=== PATIENT | male | born 1985 | race American Indian/Alaskan Native ===

== ENCOUNTER 2019-04-12 21:59 | Observation (INO) | payer OTHER ==
[2019-04-12] MEDS ORDERED: levETIRAcetam 1000 MG/NS 0.75% 1,000 MG/100 ML BAG IV ONE (22:56)
--- NOTE | 2019-04-12 23:01 | Emergency Department Report ---
HPI - General Chief Complaint: Seizure Time Seen by Provider: 04/12/19 22:47 - HPI HPI: Room 23 The patient is a 33-year-old male presenting with a chief complaint seizure. Family states the patient was in his usual state of health when he was upstairs taking a shower. Family states they heard the patient fall so they went upstairs and made entry into the bathroom to find him having a generalized tonic-clonic seizure. Family states the seizure lasted until EMS arrived and administered Ativan from is estimated 20-30 minutes). Patient has been c ompliant with his Keppra. Family states the patient's last seizure before today occurred approximately 1 year ago. The patient is currently postictal and does not answer questions Location: [See above] Duration: [See above] Quality: [See above] Severity: [See above] Timing: [See above] Context: [See above] Modifying factors: [See above] Associated signs and symptoms: [see above] ED Past Medical Hx - Past Medical History Hx CVA: Yes (residual left-sided weakness) Hx Seizures: Yes Additional medical history: Multiple sclerosis - Surgical History Past Surgical History?: No - Family History Family history: no significant - Social History Smoking Status: Never Smoker Substance Use Type: None ED Review of Systems ROS: Stated complaint: SEIZURE Other details as noted in HPI Comment: Unobtainable due to pts medical conditions Physical Exam - Physical Exam Vital Signs: Vital Signs 04/12/19 22:47 Temperature 97.7 F Pulse Rate 95 H Respiratory 13 Rate Blood Pressure 111/66 [Right] O2 Sat by Pulse 97 Oximetry Physical Exam: GENERAL: The patient is well-developed well-nourished male lying on stretcher resting. Patient postictal attempt open eyes with tactile stimuli but does not answer questions. [] HEENT: Normocephalic. Atraumatic. NECK: Supple. Trachea midline CHEST/LUNGS: Clear to auscultation. There is no respiratory distress noted. HEART/CARDIOVASCULAR: Regular. There is no tachycardia. There is no gallop rub or murmur. ABDOMEN: Abdomen is soft, nontender. Patient has normal bowel sounds. There is no abdominal distention. SKIN: There is no rash. There is no edema. There is no diaphoresis. NEURO: The patient is postictal and does not answer questions or follow commands during Neurologic exam MUSCULOSKELETAL: There is no evidence of acute injury. ED Course Vital Signs 04/12/19 22:47 Temperature 97.7 F Pulse Rate 95 H Respiratory 13 Rate Blood Pressure 111/66 [Right] O2 Sat by Pulse 97 Oximetry - Reevaluation(s) Reevaluation #1: 04/13/19 04:32 Patient does not awaken to answer questions at this time. Has not returned to mental baseline. We'll admit the patient to the hospital for further observation for prolonged postictal state ED Medical Decision Making - Lab Data Result diagrams: 04/12/19 23:28 04/12/19 23:28 Laboratory Tests 04/12/19 04/12/19 04/12/19 23:28 23:28 23:34 WBC 11.8 H RBC 4.58 Hgb 14.7 Hct 42.0 MCV 92 MCH 32 MCHC 35 H RDW 11.5 L Plt Count 255 Lymph % (Auto) 7.3 L [place] % (Auto) 5.3 Eos % (Auto) 3.4 Baso % (Auto) 0.4 Lymph # 0.9 L Teller # 0.6 Eos # 0.4 Baso # 0.0 Seg Neutrophils % 83.6 H Seg Neutrophils # 9.9 H Sodium 139 Potassium 3.9 Chloride 101.4 Carbon Dioxide 24 Anion Gap 18 BUN 13 Creatinine 1.0 Estimated GFR > 60 BUN/Creatinine Ratio 13 Glucose 119 H Calcium 9.6 Magnesium 2.00 Total Creatine Kinase 143 - Radiology Data Radiology results: report reviewed (CT head, CT cervical spine), image reviewed (CT head, CT cervical spine) [facility] [address] [place] [address] Cat Scan Report Signed Patient: DEBORAH FELICIANO MR#: [id number] : 1985 Acct:[id number] Age/Sex: 33 / M ADM Date: 04/12/19 Loc: ED Attending Dr: Ordering Physician: ELOY PYLE MD Date of Service: 04/13/19 Procedure(s): CT head/brain wo con Accession Number(s): [id number] cc: ELOY PYLE MD Examination: CT of the head without contrast Clinical information: Altered mental status. Seizure. Fall. Comparison: None Technical: Multiple axial CT images of the head were obtained without intravenous contrast. Sagittal and coronal reformats were obtained. All CTs at this facility utilize dose reduction techniques including automated exposure control, iterative reconstruction and weight based dosing when appropriate to reduce patient radiation dose to as low as reasonable achievable. Findings: There is no CT evidence of acute intracranial hemorrhage or large territorial infarct. The ventricular system appears mildly prominent, likely secondary to mild generalized parenchymal volume loss. No extra-axial collections are identified. Evaluation of the calvarium demonstrates no evidence of acute bony abnormality. There is a small mucocele or mucous retention cyst within the left maxillary sinus. Impression: 1. No CT evidence of acute intracranial process. 2. Mild generalized parenchymal volume loss. Signer Name: Gabriella Armijo MD Signed: 04/13/2019 1:53 AM Workstation Name: [id number] Transcribed By: EB Dictated By: Gabriella Armijo MD Electronically Authenticated By: Gabriella Armijo MD Signed Date/Time: 04/13/19152 DD/ 9 TD/TT: [place] [address] Cat Scan Report Signed Patient: DEBORAH FELICIANO MR#: [id number] : 1985 Acct:[id number] Age/Sex: 33 / M ADM Date: 04/12/19 Loc: ED Attending Dr: Ordering Physician: ELOY PYLE MD Date of Service: 04/13/19 Procedure(s): CT cervical spine wo con Accession Number(s): [id number] cc: ELOY PYLE MD Examination: CT of the cervical spine without contrast Clinical information: History of seizure. Fall. Comparison: CT of the head, 04/13/2019 Technical: Multip le axial CT images of the cervical spine were obtained without intravenous contrast. Sagittal and coronal reformats were obtained. All CTs at this facility utilize dose reduction techniques including automated exposure control, iterative reconstruction and weight based dosing when appropriate to reduce patient radiation dose to as low as reasonable achievable. Findings: There is normal alignment of the cervical vertebral bodies. Vertebral body height and intervertebral disc spaces appear well maintained. No significant bony degenerative changes are noted. The bilateral lung apices are clear. There may be a small amount of secretions within the trachea. Impression: 1. No CT evidence of acute bony abnormality of the cervical vertebral bodies. Signer Name: Gabriella Armijo MD Signed: 04/13/2019 2:20 AM Workstation Name: [id number] Transcribed By: EB Dictated By: Gabriella Armijo MD Electronically Authenticated By: Gabriella Armijo MD Signed Date/Time: 04/13/19219 DD/ 5 TD/TT: - Differential Diagnosis seizure Critical care attestation.: If time is entered above; I have spent that time in minutes in the direct care of this critically ill patient, excluding procedure time. ED Disposition Clinical Impression: Seizure, Post-ictal state Disposition: DC-09 OP ADMIT IP TO THIS HOSP Is pt being admited?: Yes Does the pt Need Aspirin: No Condition: Fair Time of Disposition: 04:32 (hospitalist paged (Dr Faulkner))
[2019-04-13 00:47] LABS: Basophils % (Auto) 0.4 % (0.0-1.8); Eosinophils # (Auto) 0.4 K/mm3 (0.0-0.4); Eosinophils % (Auto) 3.4 % (0.0-4.3); Hemoglobin 14.7 gm/dl (11.8-15.2); Lymphocytes # (Auto) 0.9 K/mm3 (1.2-5.4); Lymphocytes % (Auto) 7.3 % (13.4-35.0); Mean Corpuscular HGB Conc 35 % (32-34); Mean Corpuscular Volume 92 fl (84-94); Monocytes # (Auto) 0.6 K/mm3 (0.0-0.8); Monocytes % (Auto) 5.3 % (0.0-7.3); Platelet Count 255 K/mm3 (140-440); Red Blood Count 4.58 M/mm3 (3.65-5.03); Red Cell Distribution Width 11.5 % (13.2-15.2)
[2019-04-13 01:06] LABS: BUN/Creatinine Ratio 13; Blood Urea Nitrogen 13 mg/dL (9-20); Calcium 9.6 mg/dL (8.4-10.2); Hemolysis Index 6
--- NOTE | 2019-04-13 01:57 | Cat Scan Report ---
Examination: CT of the head without contrast Clinical information: Altered mental status. Seizure. Fall. Comparison: None Technical: Multiple axial CT images of the head were obtained without intravenous contrast. Sagittal and coronal reformats were obtained. All CTs at this facility utilize dose reduction techniques inc luding automated exposure control, iterative reconstruction and weight based dosing when appropriate to reduce patient radiation dose to as low as reasonable achievable. Findings: There is no CT evidence of acute intracranial hemorrhage or large territorial infarct. The ventricular system appears mildly prominent, likely secondary to mild generalized parenchymal volume loss. No extra-axial collections are identified. Evaluation of the calvarium demonstrates no evidence of acute bony abnormality. There is a small muco bhavesh or mucous retention cyst within the left maxillary sinus. Impression: 1. No CT evidence of acute intracranial process. 2. Mild generalized parenchymal volume loss. Signer Name: Gabriella Armijo MD Signed: 04/13/2019 1:53 AM Workstation Name: [id number]
--- NOTE | 2019-04-13 02:25 | Cat Scan Report ---
Examination: CT of the cervical spine without contrast Clinical information: History of seizure. Fall. Comparison: CT of the head, 04/13/2019 Technical: Multiple axial CT images of the cervical spine were obtained without intravenous contrast. Sagittal and coronal reformats were obtained. All CTs at this facility utilize dose reduction techn iques including automated exposure control, iterative reconstruction and weight based dosing when karl ropriate to reduce patient radiation dose to as low as reasonable achievable. Findings: There is normal alignment of the cervical vertebral bodies. Vertebral body height and intervertebral disc spaces appear well maintained. No significant bony degenerative changes are noted. The bilateral lung apices are clear. There may be a small amount of secretions within the trachea. Impression: 1. No CT evidence of acute bony abnormality of the cervical vertebral bodies. Signer Name: Gabriella Armijo MD Signed: 04/13/2019 2:20 AM Workstation Name: [id number]
[2019-04-13] MEDS ORDERED: ONDANSETRON 4 MG/2 ML INJ ONE (03:40)
[2019-04-13] MEDS ORDERED: ONDANSETRON 4 MG/2 ML INJ IV ONE (03:42)
--- NOTE | 2019-04-13 07:38 | History and Physical Report ---
History of Present Illness Date of examination: 04/13/19 Date of admission: 04/13/19 Chief complaint: Seizure History of present illness: Patient is a 33-year-old male with past medical history of MS diagnosed at age 20 and since then also seizure normally receives care in [place] from where he recently moved to [place] about a month and a half ago according to history from the family. The patient is a poor historian unable to give much information except that he normally gets shots for his seizures every 6 months from his neurologist. He also reports taking Keppra but is unsure of the dose but states that he takes 2 tablets twice a day. Family upon arrival informs me that they are the ones that give the patient his medications but are not sure if he just shakes them and then spits them out but they believe that he actually does take the medication. Patient on arrival did not exhibit any nausea vomiting or diarrhea. The patient did have according to chart review tonic- clonic seizure and was postictal on arrival to the ED. It is documented that his last seizure was about a year ago though he does have increased tremors since. Past History Past Medical History: seizures, other (MS) Past Surgical History: No surgical history Social history: no significant social history, lives with family, full code Family history: no significant family history Medications and Allergies Allergies Allergy/AdvReac Type Severity Reaction Status Date / Time aspirin Allergy Unknown Verified 04/12/19 23:06 ibuprofen Allergy Unknown Verified 04/12/19 23:06 wheat Allergy Unknown Verified 04/12/19 23:07 Home Medications Medication Instructions Recorded Confirmed Last Taken Type levETIRAcetam [Keppra TAB] 2,000 mg PO BID 04/13/19 04/13/19 Unknown History Review of Systems ROS unobtainable: due to mental status Exam - Physical Exam Narrative exam: VITAL SIGNS: Reviewed. GENERAL: The patient appears normally developed, tremors Vital signs as documented. HEAD: No signs of head trauma. EYES: Pupils are equal. Extraocular motions intact. EARS: Hearing grossly intact. MOUTH: Oropharynx is normal. NECK: No adenopathy, no JVD. CHEST: Chest with clear breath sounds bilaterally. No wheezes, rales, or rhonchi. CARDIAC: Regular rate and rhythm. S1 and S2, without murmurs, gallops, or rubs. VASCULAR: No Edema. Peripheral pulses normal and equal in all extremities. ABDOMEN: Soft, non tender and non distended. No rebound or guarding, and no masses palpated. Bowel Sounds normal. MUSCULOSKELETAL: Good range of motion of all major joints. Extremities without clubbing, cyanosis or edema. NEUROLOGIC EXAM: Alert and oriented x 3 No focal sensory or strength deficits. Speech normal although some treamor. Follows commands. PSYCHIATRIC: Mood normal. SKIN: detail exam as documented in skin assessment - Constitutional Vitals: Temp Pulse Resp BP Pulse Ox 97.7 F 69 19 116/59 95 04/12/19 22:47 04/13/19 06:41 04/13/19 06:41 04/13/19 06:41 04/13/19 06:41 Results - Labs CBC & Chem 7: 04/12/19 23:28 04/12/19 23:28 Labs: Laboratory Last Values WBC 11.8 K/mm3 (4.5-11.0) H 04/12/19 23:28 RBC 4.58 M/mm3 (3.65-5.03) 04/12/19 23:28 Hgb 14.7 gm/dl (11.8-15.2) 04/12/19 23:28 Hct 42.0 % (35.5-45.6) 04/12/19 23:28 MCV 92 fl (84-94) 04/12/19 23:28 MCH 32 pg (28-32) 04/12/19 23:28 MCHC 35 % (32-34) H 04/12/19 23:28 RDW 11.5 % (13.2-15.2) L 04/12/19 23:28 Plt Count 255 K/mm3 (140-440) 04/12/19 23:28 Lymph % (Auto) 7.3 % (13.4-35.0) L 04/12/19 23:28 [place] % (Auto) 5.3 % (0.0-7.3) 04/12/19 23: Eos % (Auto) 3.4 % (0.0-4.3) 04/12/19 23:28 Baso % (Auto) 0.4 % (0.0-1.8) 04/12/19 23:28 Lymph # 0.9 K/mm3 (1.2-5.4) L 04/12/19 23:28 [place] # 0.6 K/mm3 (0.0-0.8) 04/12/19 23:28 Eos # 0.4 K/mm3 (0.0-0.4) 04/12/19 23:28 Baso # 0.0 K/mm3 (0.0-0.1) 04/12/19 23:28 Seg Neutrophils % 83.6 % (40.0-70.0) H 04/12/19 23:28 Seg Neutrophils # 9.9 K/mm3 (1.8-7.7) H 04/12/19 23:28 Sodium 139 mmol/L (137-145) 04/12/19 23:28 Potassium 3.9 mmol/L (3.6-5.0) 04/12/19 23:28 Chloride 101.4 mmol/L (98-107) 04/12/19 23:28 Carbon Dioxide 24 mmol/L (22-30) 04/12/19 23:28 Anion Gap 18 mmol/L 04/12/19 23:28 BUN 13 mg/dL (9-20) 04/12/19 23:28 Creatinine 1.0 mg/dL (0.8-1.5) 04/12/19 23:28 Estimated GFR > 60 ml/min 04/12/19 23:28 BUN/Creatinine Ratio 13 % 04/12/19 23:28 Glucose 119 mg/dL (75-100) H 04/12/19 23:28 Calcium 9.6 mg/dL (8.4-10.2) 04/12/19 23:28 Magnesium 2.00 mg/dL (1.7-2.3) 04/12/19 23:28 Total Creatine Kinase 143 units/L (55-170) 04/12/19 23:34 Assessment and Plan Assessment and plan: Patient is a 33-year-old male with past medical history of MS diagnosed at age 20 and since then also seizure normally receives care in [place] from where he recently moved to [place] about a month and a half ago according to history from the family. The patient is a poor historian unable to give much information except that he normally gets shots for his seizures every 6 months from his neurologist. He also reports taking Keppra but is unsure of the dose but states that he takes 2 tablets twice a day. Family upon arrival informs me that they are the ones that give the patient his medications but are not sure if he just shakes them and then spits them out but they believe that he actually does take the medication. Patient on arrival did not exhibit any nausea vomiting or diarrhea. The patient did have according to chart review tonic- clonic seizure and was postictal on arrival to the ED. It is documented that his last seizure was about a year ago though he does have increased tremors since. Seizure MS Leukocytosis Plan Admit to [facility] Seizure Precautions Restart home dose Keppra, attempt to get correct dose Discussed with family Await ordered UDS Outpatient EEG per Neurology Advance Directives: Yes Plan of care discussed with patient/family: Yes
[2019-04-13] MEDS ORDERED: ONDANSETRON 4 MG/2 ML INJ IV PRN (10:11)
--- NOTE | 2019-04-13 10:46 | Consultation ---
History of Present Illness Consult date: 04/13/19 Requesting physician: LAURYN AYALA Reason for Consult: sz Chief complaint: I had a seizure History of present illness: 33-year-old male very poor historian hypophonic not giving up a lot of history states she's had seizures for 5 years and a tremor Admits to noncompliance with Keppra stating that he thinks he took it about a month ago but is not sure arrives with breakthrough seizures Based on chart review he had a tonic-clonic seizure yesterday post ictal arrival here his last seizure was approximately one year ago patient has a warning "a feeling that have a seizure" he says his tremors increase In the past she's never been intubated for seizures he says his longest seizure was maybe 10 minutes Since admission to the ER no further seizures patient denies any focal brain def icits Currently no change of vision speech or swallow no double vision vertigo or headache Patient denies any lateralizing deficits numbness tingling loss of coordination or balance Patient states he is always has a tremor at baseline In his chart states that he's had a seizure history and probably epilepsy and possibly multiple sclerosis along with the CVA that is based on the ED notes CT head which was reviewed by myself shows no acute findings but there is mention of generalized parenchymal volume loss CT cervical shows no fracture Patient was loaded with Keppra in the ED White count is elevated Review of systems all other systems negative No hallucinations no SI or HI No bowel and bladder dysfunction no fever no recent illness patient denies any sleep deprivation History negative for neurologic disease Social history negative for occult tobacco or drugs Medications and Allergies Allergies Allergy/AdvReac Type Severity Reaction Status Date / Time aspirin Allergy Unknown Verified 04/12/19 23:06 ibuprofen Allergy Unknown Verified 04/12/19 23:06 wheat Allergy Unknown Verified 04/12/19 23:07 Home Medications Medication Instructions Recorded Confirmed Last Taken Type No Known Home Medications [No 04/13/19 04/13/19 Unknown History Reported Home Medications] Active Meds: Active Medications Acetaminophen (Tylenol) 650 mg PO Q4H PRN PRN Reason: Pain MILD(1-3)/Fever >100.5/MENDES Levetiracetam 1,000 mg/ (Dextrose) 110 mls @ 400 mls/hr IV Q12HR KATHY Ondansetron HCl (Zofran) 4 mg IV Q8H PRN PRN Reason: Nausea And Vomiting Sodium Chloride (Sodium Chloride Flush Syringe 10 Ml) 10 ml IV BID KATHY Sodium Chloride (Sodium Chloride Flush Syringe 10 Ml) 10 ml IV PRN PRN PRN Reason: LINE FLUSH Physical Examination - Vital Signs Vital Signs: Vital Signs Temp Pulse Resp BP Pulse Ox 97.7 F 95 H 13 111/66 97 04/12/19 22:47 04/12/19 22:47 04/12/19 22:47 04/12/19 22:47 04/12/19 22:47 Awake and alert and oriented 2 hypophonic slow speech patient has some memory issues and can't really recall his medications last seizure a warning prior to his seizure his longest seizure Slow speech and possibly mildly confused and mildly disoriented No dysarthria no agnosia no apraxia no aphasia Neck is supple skin intact pulses are good to all limbs No asymmetrical edema Abdomen soft Cranial nerves are all intact 2 through 12 thoroughly tested EOMI PERRLA double vision visual alcaraz are full Head titubation's There is also some action tremor to the arms and legs 5 out of 5 strength throughout and normal sensory throughout and normal tone and symmetrical throughout No cerebellar signs Tongue is midline no discharge nose or ears Results - Laboratory Findings CBC and BMP: 04/12/19 23:28 04/12/19 23:28 Abnormal Lab Findings: Abnormal Labs 04/12/19 04/12/19 23:28 23:28 WBC 11.8 H MCHC 35 H RDW 11.5 L Lymph % (Auto) 7.3 L Lymph # 0.9 L Seg Neutrophils % 83.6 H Seg Neutrophils # 9.9 H Glucose 119 H Assessment and Plan Seizure breakthrough patient is a poor historian I'm going off chart review and there is no family in the room apparently has a history of stroke MS and seizure disorder Patient does get a warning so he probably has focal and generalized seizure disorder Stable No further seizures loaded with Keppra I would continue Keppra 500 twice a day Seizure precaution Workup elevated white counts thus far no fevers or suggestion of infection Patient is noncompliant with his Keppra Because I don't have any imaging on patient such as MRI brain to evaluate prior history of stroke MS I would get one MRI brain wall he is here unless the team finds an old MRI that was done within the past year and then they can cancel my order Aspirin for secondary stroke prevention Telemetry Check UDS Outpatient EEG 80 minutes was spent on this case mainly going through the chart and this was the best way to find out information, as patient is a poor historian
[2019-04-13] MEDS ORDERED: LORazepam 2 MG/ML VIAL IV PRN (13:14)
[2019-04-13] MEDS: ACETAMINOPHEN 325 MG TAB PO PRN (13:53)
[2019-04-13] MEDS ORDERED: levETIRAcetam 1,000 MG in DEXTROSE 5% IN WATER 100 ML IV SCH (22:00)
[2019-04-13] MEDS ORDERED: LEVETIRACETAM 2000 MG PO SCH (22:00)
[2019-04-13] MEDS: levETIRAcetam 500 MG TAB PO SCH (22:51)
[2019-04-14 05:44] LABS: Basophils # (Auto) 0.1 K/mm3 (0.0-0.1); Eosinophils # (Auto) 0.8 K/mm3 (0.0-0.4); Eosinophils % (Auto) 13.8 % (0.0-4.3); Hematocrit 41.9 % (35.5-45.6); Hemoglobin 14.5 gm/dl (11.8-15.2); Lymphocytes # (Auto) 1.9 K/mm3 (1.2-5.4); Lymphocytes % (Auto) 33.7 % (13.4-35.0); Mean Corpuscular HGB Conc 35 % (32-34); Mean Corpuscular Volume 91 fl (84-94); Monocytes # (Auto) 0.6 K/mm3 (0.0-0.8); Platelet Count 232 K/mm3 (140-440); Red Cell Distribution Width 11.7 % (13.2-15.2)
[2019-04-14 05:56] LABS: BUN/Creatinine Ratio 16; Blood Urea Nitrogen 14 mg/dL (9-20); Calcium 9.3 mg/dL (8.4-10.2); Hemolysis Index 15
[2019-04-14] MEDS: levETIRAcetam 500 MG TAB PO SCH (10:17)
[2019-04-14] MEDS: ACETAMINOPHEN 325 MG TAB PO PRN (11:31)
--- NOTE | 2019-04-14 11:56 | Discharge Summary ---
Providers - Providers Date of Admission: 04/13/19 05:00 Attending physician: MEGAN DUPONT MD 04/13/19 07:38 Consult to Physician [CONS] Routine Comment: Consulting Provider: FLOYD AMAYA Physician Instructions: Reason For Exam: SEIZURE Primary care physician: DATABASE ADMINISTRATOR Hospitalization Reason for admission: Seizure Condition: Stable Hospital course: Patient is a 33-year-old male with past medical history of MS diagnosed at age 20 and since then also seizure normally receives care in [place] from where he recently moved to [place] about a month and a half ago according to history from the family. The patient is a poor historian unable to give much information except that he normally gets shots for his seizures every 6 months from his neurologist. He also reports taking Keppra but is unsure of the dose but states that he takes 2 tablets twice a day. Family upon arrival informs me that they are the ones that give the patient his medications but are not sure if he just shakes them and then spits them out but they believe that he actually does take the medication. Patient on arrival did not exhibit any nausea vomiting or diarrhea. The patient did have according to chart review tonic- clonic seizure and was postictal on arrival to the ED. It is documented that his last seizure was about a year ago though he does have increased tremors since. * Patient underwent an MRI which did not show any acute pathology. * Patient seizure improved continued antiseizure medication on home dose. Advised family about need for follow-up. They recommended to be following up at the [facility] based on recommendation from patient's previous neurology. They had wanted to take the patient home yesterday but I convinced them to wait till today so that we can get better evaluation of the patient and ensure that there is no breakthrough seizures. I also advised the patient no driving according to [place] law and no operating any motorized vehicle. Until seen and cleared by primary care doctor or neurologist Seizure MS Leukocytosis Disposition: - TO HOME OR SELFCARE Time spent for discharge: 35 minutes Core Measure Documentation - Palliative Care Palliative Care/ Comfort Measures: Not Applicable - Core Measures Any of the following diagnoses?: none Exam - Physical Exam Narrative exam: VITAL SIGNS: Reviewed. GENERAL: The patient appears normally developed, tremors Vital signs as documented. HEAD: No signs of head trauma. EYES: Pupils are equal. Extraocular motions intact. EARS: Hearing grossly intact. MOUTH: Oropharynx is normal. NECK: No adenopathy, no JVD. CHEST: Chest with clear breath sounds bilaterally. No wheezes, rales, or rhonchi. CARDIAC: Regular rate and rhythm. S1 and S2, without murmurs, gallops, or rubs. VASCULAR: No Edema. Peripheral pulses normal and equal in all extremities. ABDOMEN: Soft, non tender and non distended. No rebound or guarding, and no masses palpated. Bowel Sounds normal. MUSCULOSKELETAL: Good range of motion of all major joints. Extremities without clubbing, cyanosis or edema. NEUROLOGIC EXAM: Alert and oriented x 3 No focal sensory or strength deficits. Speech normal although some treamor. Follows commands. PSYCHIATRIC: Mood normal. SKIN: detail exam as documented in skin assessment - Constitutional Vitals: Temp Pulse Resp BP Pulse Ox 98.2 F 64 18 115/76 97 04/14/19 05:00 04/14/19 05:00 04/14/19 05:00 04/14/19 05:00 04/14/19 05:00 Plan Activity: no driving until cleared by PCP, fall precautions Diet: low fat Special Instructions: record daily weights, record daily BP diary Additional Instructions: Mother plans for patient to follow at [facility]. Continue with plan Follow up with: PRIMARY CAREMD [Primary Care Provider] - 3-5 Days [facility] [Outside] - 7 Days Prescriptions: levETIRAcetam [Keppra TAB] 2,000 mg PO BID #60 tab
[2019-04-14 12:47] VITALS: BP 133/64
--- NOTE | 2019-04-14 13:20 | Magnetic Resonance Report ---
MRI BRAIN WITHOUT CONTRAST INDICATION / CLINICAL INFORMATION: arriving with seizure disorder history of MS CVA. TECHNIQUE: Multisequence, multiplanar images were obtained. COMPARISON: CT head without contrast dated 04/13/2019 FINDINGS: CEREBRAL and CEREBELLAR HEMISPHERES: Moderate diffuse volume loss is evident. Extensive T2 signal abn ormalities are identified throughout the white matter of both cerebral hemispheres. The overall patte rn is most consistent with chronic microvascular ischemic change. There are a few pericallosal lesion s bilaterally which could be related to multiple sclerosis. No evidence for mass, hemorrhage, extra- axial fluid collection or chronic infarct. No diffusion restriction to suggest acute infarct. VENTRICLES: Normal in size and configuration for age. VISUALIZED ORBITS: No significant abnormality. The optic nerves are symmetric and unremarkable. VISUALIZED PARANASAL SINUSES: No significant abnormality. ADDITIONAL FINDINGS: None. IMPRESSION: Volume loss. Extensive nonspecific chronic white matter changes as described. No acute intracranial process is appreciated. Signer Name: Sunny Pratt Jr, MD Signed: 04/14/2019 1:15 PM Workstation Name: [id number]
[2019-04-14 15:18] LABS: Amphetamine Screen,Urine PRESUMPTIVE NEGATIVE; Benzodiazepines Screen,Urine PRESUMPTIVE NEGATIVE; Cannabinoid Screen,Urine PRESUMPTIVE NEGATIVE; Cocaine Screen,Urine PRESUMPTIVE NEGATIVE; Methadone Screen,Urine PRESUMPTIVE NEGATIVE; Opiate Screen,Urine PRESUMPTIVE NEGATIVE
== END 2019-04-14 15:00 | disposition home or self-care (01) ==
LOC: ED 21:59 → 3A 04-13 05:00
PROVIDERS: ADMIT Internal Medicine Geriatric Medicine; ATTEND Internal Medicine
DX: R56.9 Unspecified convulsions (principal); G35 Multiple sclerosis; D72.829 Elevated white blood cell count, unspecified; I69.354 Hemiplegia and hemiparesis following cerebral infarction affecting left non-dominant side; Z71.6 Tobacco abuse counseling; Z79.899 Other long term (current) drug therapy; Z79.82 Long term (current) use of aspirin; Z88.6 Allergy status to analgesic agent; Z91.018 Allergy to other foods
CPT/HCPCS: 36415; 70450; 70551; 72125; 80048; 80177; 80307; 82550; 83735; 85025; 96374; 96375; 99284; 99406; G0378; J1953; J2405

== ENCOUNTER 2020-06-11 01:38 | Inpatient (IN) | payer MEDICARE ==
--- NOTE | 2020-06-11 02:29 | Emergency Department Report ---
ED Seizure HPI - General Chief Complaint: Seizure Stated Complaint: SEIZURE Time Seen by Provider: 06/11/20 02:02 Source: EMS Mode of arrival: Stretcher Limitations: Altered Mental Status - History of Present Illness Initial Comments: Chief complaint: Seizure HPI: This is a 34-year-old male with history of seizure disorder, multiple sclerosis since age 20, cognitive deficit who presents with 5 consecutive seizures today. Patient received 4 mg total of lorazepam per EMS. 2 mg were given IV. 2 mg given IM. Patient has not had seizure in 1 years time. At that time he had similar presentation. Patient has minimal verbal interaction at baseline. According to electronic record, patient was admitted to this hospital in April 2019 for status epilepticus. I spoke by mother for phone Eduin Pace phone #[phone] Patient has history of epilepsy MS depression paranoia. Followed by Kelin Matute neurologist epicenter. Mother observed 3 seizures today. Patient had 2 additional seizures in the presence of EMS. Patient takes Keppra 2000 mg twice daily 8 in the morning 8 PM. Patient also takes Seroquel 200 mg and Zoloft 100 mg. Patient is followed by psychiatrist at [facility]. No new changes. Mother is unclear why patient has had seizures especially this morning. MD Complaint: seizure -: This evening Witnessed:: Yes Trauma: No Seizure History: known seizure disorder Place: home Possible Precipitating Event: other (Unknown, patient is compliant with Keppra 2000 mg daily) Associated Symptoms: other (Unable to obtain) Treatments Prior to Arrival: benzodiazepines (4 mg via EMS) - Related Data Previous Rx's Medication Instructions Recorded Last Taken Type levETIRAcetam [Keppra TAB] 2,000 mg PO BID #60 tab 04/14/19 Unknown Rx Allergies Allergy/AdvReac Type Severity Reaction Status Date / Time aspirin Allergy Unknown Verified 04/12/19 23:06 ibuprofen Allergy Unknown Verified 04/12/19 23:06 wheat Allergy Unknown Verified 04/12/19 23:07 ED Review of Systems ROS: Stated complaint: SEIZURE Other details as noted in HPI Comment: Unobtainable due to pts medical conditions (Sedated, history of cognitive deficit) ED Past Medical Hx - Past Medical History Previous Medical History?: Yes Hx CVA: Yes (residual left-sided weakness) Hx Seizures: Yes Additional medical history: Multiple sclerosis - Social History Smoking Status: Never Smoker - Medications Home Medications: Home Medications Medication Instructions Recorded Confirmed Last Taken Type levETIRAcetam [Keppra TAB] 2,000 mg PO BID #60 tab 04/14/19 Unknown Rx ED Physical Exam - General Limitations: Altered Mental Status General appearance: in no apparent distress, lethargic, other (Intact gag, will moan to questions, will open eyes, appears drowsy) - Head Head exam: Present: atraumatic, normocephalic - Eye Eye exam: Present: normal appearance - ENT ENT exam: Present: mucous membranes dry - Neck Neck exam: Present: normal inspection, full ROM - Respiratory Respiratory exam: Present: normal lung sounds bilaterally. Absent: respiratory distress, wheezes, rales, rhonchi - Cardiovascular Cardiovascular Exam: Present: regular rate, normal rhythm, normal heart sounds. Absent: systolic murmur, diastolic murmur, rubs, gallop - GI/Abdominal GI/Abdominal exam: Present: soft, normal bowel sounds. Absent: distended, tenderness, guarding, rebound - Rectal Rectal exam: Present: deferred - Extremities Exam Extremities exam: Present: normal inspection - Psychiatric Psychiatric exam: Present: flat affect - Skin Skin exam: Present: warm, dry, intact, normal color. Absent: rash ED Course Vital Signs 06/11/20 01:52 Temperature 99.0 F Pulse Rate 109 H Respiratory 14 Rate Blood Pressure 118/68 O2 Sat by Pulse 94 Oximetry ED Medical Decision Making - Lab Data Result diagrams: 06/11/20 02:36 06/11/20 02:36 Laboratory Results - last 24 hr 06/11/20 06/11/20 02:36 02:36 WBC 11.2 H RBC 4.64 Hgb 15.1 Hct 43.2 MCV 93 MCH 33 H MCHC 35 H RDW 11.9 L Plt Count 257 Lymph % (Auto) 9.2 L [place] % (Auto) 5.6 Eos % (Auto) 3.6 Baso % (Auto) 0.6 Lymph # (Auto) 1.0 L [place] # (Auto) 0.6 Eos # (Auto) 0.4 Baso # (Auto) 0.1 Seg Neutrophils % 81.0 H Seg Neutrophils # 9.1 H Sodium 137 Potassium 3.7 Chloride 100.2 Carbon Dioxide 26 Anion Gap 15 BUN 12 Creatinine 1.0 Estimated GFR > 60 BUN/Creatinine Ratio 12 Glucose 149 H Calcium 9.2 Total Bilirubin 0.20 AST 27 ALT 34 Alkaline Phosphatase 93 Total Protein 7.3 Albumin 4.6 Albumin/Globulin Ratio 1.7 - Medical Decision Making Status epilepticus: Patient required 4 mg of lorazepam. Patient is still sedated. Will need admission for neurological checks and medical optimization. CBC chemistry within normal limits. Critical care attestation.: If time is entered above; I have spent that time in minutes in the direct care of this critically ill patient, excluding procedure time. ED Disposition Clinical Impression: Status epilepticus, Multiple sclerosis Disposition: OP ADMIT IP TO THIS HOSP Is pt being admited?: Yes Does the pt Need Aspirin: No Condition: Stable
[2020-06-11 03:18] LABS: Basophils # (Auto) 0.1 K/mm3 (0.0-0.1); Basophils % (Auto) 0.6 % (0.0-1.8); Eosinophils # (Auto) 0.4 K/mm3 (0.0-0.4); Eosinophils % (Auto) 3.6 % (0.0-4.3); Hematocrit 43.2 % (35.5-45.6); Hemoglobin 15.1 gm/dl (11.8-15.2); Lymphocytes % (Auto) 9.2 % (13.4-35.0); Mean Corpuscular HGB Conc 35 % (32-34); Mean Corpuscular Volume 93 fl (84-94); Monocytes # (Auto) 0.6 K/mm3 (0.0-0.8); Monocytes % (Auto) 5.6 % (0.0-7.3); Platelet Count 257 K/mm3 (140-440); Red Blood Count 4.64 M/mm3 (3.65-5.03); Red Cell Distribution Width 11.9 % (13.2-15.2)
[2020-06-11 03:35] LABS: Alanine Aminotransferase 34 units/L (7-56); Albumin 4.6 g/dL (3.9-5); BUN/Creatinine Ratio 12; Blood Urea Nitrogen 12 mg/dL (9-20); Calcium 9.2 mg/dL (8.4-10.2); Hemolysis Index 7
[2020-06-11] MEDS ORDERED: ONDANSETRON 4 MG/2 ML INJ ONE (04:30)
[2020-06-11] MEDS ORDERED: PANTOPRAZOLE 40 MG INJ IV ONE (04:33)
[2020-06-11] MEDS ORDERED: ONDANSETRON 4 MG/2 ML INJ IV ONE (04:33)
[2020-06-11] MEDS ORDERED: ACETAMINOPHEN 325 MG TAB PO PRN (04:42)
[2020-06-11] MEDS ORDERED: MAGNESIUM HYDROXIDE (MOM) ORAL LIQD UDC PO PRN (04:42)
[2020-06-11] MEDS ORDERED: MORPHINE 2 MG/1 ML INJ IV PRN (04:42)
[2020-06-11] MEDS ORDERED: ONDANSETRON 4 MG/2 ML INJ IV PRN (04:42)
--- NOTE | 2020-06-11 04:53 | History and Physical Report ---
History of Present Illness Date of examination: 06/11/20 Date of admission: 06/11/2020 Chief complaint: Seizures History of present illness: 34-year-old male with known history of multiple sclerosis, seizure disorder, depression and paranoia brought into the emergency room by EMS after having multiple seizures today. He has had about 5 seizures prior to reporting to the emergency room. Patient has also had about 4 mg of lorazepam prior to arrival. Most of the history was gotten from the ER staff as patient is nonverbal. Patient had a similar episode sometime in April 2019. He takes Keppra 2000 mg twice a day. Follows up with Dr. Matute who is his neurologist. Mother is the caregiver. Work-up in the emergency room today has been unremarkable. Patient is currently postictal. Past History Past Medical History: seizures, stroke (With left sided weakness), other (Multiple sclerosis,Depression,) Past Surgical History: No surgical history Social history: no significant social history Family history: no significant family history Medications and Allergies Allergies Allergy/AdvReac Type Severity Reaction Status Date / Time aspirin Allergy Unknown Verified 04/12/19 23:06 ibuprofen Allergy Unknown Verified 04/12/19 23:06 wheat Allergy Unknown Verified 04/12/19 23:07 Home Medications Medication Instructions Recorded Confirmed Last Taken Type levETIRAcetam [Keppra TAB] 2,000 mg PO BID #60 tab 04/14/19 Unknown Rx Active Meds: Active Medications Acetaminophen (Acetaminophen 325 Mg Tab) 650 mg PO Q4H PRN PRN Reason: Pain MILD(1-3)/Fever >100.5/MENDES Enoxaparin Sodium (Enoxaparin 40 Mg/0.4 Ml Inj) 40 mg SUB-Q QDAY@2200 KATHY; Protocol Sodium Chloride (Nacl 0.9% 1000 Ml) 1,000 mls @ 75 mls/hr IV DIRECT KATHY Magnesium Hydroxide (Magnesium Hydroxide (Mom) Oral Liqd Udc) 30 ml PO Q4H PRN PRN Reason: Constipation Morphine Sulfate (Morphine 2 Mg/1 Ml Inj) 2 mg IV Q4H PRN PRN Reason: Pain, Moderate (4-6) Ondansetron HCl (Ondansetron 4 Mg/2 Ml Inj) 4 mg IV Q8H PRN PRN Reason: Nausea And Vomiting Sodium Chloride (Sodium Chloride 0.9% 10 Ml Flush Syringe) 10 ml IV BID KATHY Sodium Chloride (Sodium Chloride 0.9% 10 Ml Flush Syringe) 10 ml IV PRN PRN PRN Reason: LINE FLUSH Review of Systems ROS unobtainable: due to mental status Exam - Constitutional Vitals: Temp Pulse Resp BP Pulse Ox 99.0 F 109 H 14 118/68 94 06/11/20 01:52 06/11/20 01:52 06/11/20 01:52 06/11/20 01:52 06/11/20 01:52 General appearance: Present: no acute distress, well-nourished - EENT Eyes: Present: PERRL, EOM intact. Absent: scleral icterus ENT: hearing intact, clear oral mucosa, dentition normal - Neck Neck: Present: supple, normal ROM - Respiratory Respiratory effort: normal Respiratory: bilateral: CTA - Cardiovascular Rhythm: regular Heart Sounds: Present: S1 & S2. Absent: gallop, systolic murmur, diastolic murmur, rub, click - Extremities Extremities: no ischemia, pulses intact, pulses symmetrical, No edema, normal temperature, normal color, Full ROM Peripheral Pulses: within normal limits - Abdominal General gastrointestinal: Present: soft, non-tender, non-distended, normal bowel sounds. Absent: mass - Integumentary Integumentary: Present: clear, warm, dry. Absent: rash - Musculoskeletal Musculoskeletal: strength equal bilaterally - Psychiatric Psychiatric: cooperative - Neurologic Neurologic: other (Alert,drowsy and non verbal) Results - Labs CBC & Chem 7: 06/11/20 02:36 06/11/20 02:36 Labs: Abnormal lab results 06/11/20 06/11/20 Range/Units 02:36 02:36 WBC 11.2 H (4.5-11.0) K/mm3 MCH 33 H (28-32) pg MCHC 35 H (32-34) % RDW 11.9 L (13.2-15.2) % Lymph % (Auto) 9.2 L (13.4-35.0) % Lymph # (Auto) 1.0 L (1.2-5.4) K/mm3 Seg Neutrophils % 81.0 H (40.0-70.0) % Seg Neutrophils # 9.1 H (1.8-7.7) K/mm3 Glucose 149 H (75-100) mg/dL Assessment and Plan - Patient Problems (1) Status epilepticus Current Visit: Yes Status: Acute Plan to address problem: Patient admitted and placed on Keppra. We will place on seizure precautions. Patient is currently postictal. Consult placed to neurologist for evaluation. (2) Multiple sclerosis Current Visit: Yes Status: Acute Plan to address problem: Patient was diagnosed since age 20. None We will continue routine home medications. (3) DVT prophylaxis Current Visit: Yes Status: Acute Plan to address problem: Place patient on subcutaneous lovenox. (4) Full code status Current Visit: Yes Status: Acute Plan to address problem: Patient is a full code.
[2020-06-11] MEDS ORDERED: LORazepam 2 MG/ML VIAL IV PRN (05:44)
[2020-06-11 05:47] LABS: Mucus,Urine FEW /HPF; WBC,Urine < 1.0 /HPF (0.0-6.0)
--- NOTE | 2020-06-11 05:51 | Cat Scan Report ---
CT head/brain wo con INDICATION: seizure vomiting. TECHNIQUE: All CT scans at this location are performed using the following dose modulation technique: Automated exposure control. CONTRAST: None. COMPARISON: 04/13/2019. FINDINGS: The ventricular system is appropriate in size and configuration without midline shift. Ther e is atrophy for age and white matter low density. Negative for mass, stroke or hemorrhage. The bones are unremarkable. Evaluation the paranasal sinuses demonstrate a left maxillary mucous rete ntion cyst. IMPRESSION: 1. Atrophy for age. 2. White matter disease. Findings are not significantly changed from the previous exam. Signer Name: Julian Castelan MD Signed: 06/11/2020 5:46 AM Workstation Name: [id number]
[2020-06-11 05:55] LABS: Bilirubin,Urine NEG (Negative); Blood,Urine NEG (Negative); Color,Urine Yellow (Yellow); Protein,Urine <15 mg/dL mg/dL (Negative); Urobilinogen,Urine < 2.0 mg/dL (<2.0)
--- NOTE | 2020-06-11 08:36 | Progress Note ---
Assessment and Plan Assessment and plan: 34-year-old male with known history of multiple sclerosis, seizure disorder, depression and paranoia brought into the emergency room by EMS after having multiple seizures Seizure disorder. S/p status epilepticus Multiple sclerosis DVT prophylaxis 06/11/2020. Neurology consultation pending. Follow-up EEG. Continue Keppra. Seizure precautions. CT head unremarkable. Consider MRI History Interval history: No new issues overnight. Hospitalist Physical - Constitutional Vitals: Temp Pulse Resp BP Pulse Ox 99.0 F 87 22 144/73 97 06/11/20 01:52 06/11/20 06:31 06/11/20 06:31 06/11/20 06:31 06/11/20 06:31 General appearance: Present: no acute distress, well-nourished - EENT Eyes: Present: PERRL, EOM intact ENT: hearing intact, clear oral mucosa, dentition normal - Neck Neck: Present: supple, normal ROM - Respiratory Respiratory effort: normal Respiratory: bilateral: CTA - Cardiovascular Rhythm: regular Heart Sounds: Present: S1 & S2. Absent: gallop, rub - Extremities Extremities: no ischemia, No edema, Full ROM - Abdominal General gastrointestinal: soft, non-tender, non-distended, normal bowel sounds - Integumentary Integumentary: Present: clear, warm, dry - Neurologic Neurologic: CNII-XII intact, moves all extremities Results - Labs CBC & Chem 7: 06/11/20 02:36 06/11/20 02:36 Labs: Laboratory Last Values WBC 11.2 K/mm3 (4.5-11.0) H 06/11/20 02:36 RBC 4.64 M/mm3 (3.65-5.03) 06/11/20 02:36 Hgb 15.1 gm/dl (11.8-15.2) 06/11/20 02:36 Hct 43.2 % (35.5-45.6) 06/11/20 02:36 MCV 93 fl (84-94) 06/11/20 02:36 MCH 33 pg (28-32) H 06/11/20 02:36 MCHC 35 % (32-34) H 06/11/20 02:36 RDW 11.9 % (13.2-15.2) L 06/11/20 02:36 Plt Count 257 K/mm3 (140-440) 06/11/20 02:36 Lymph % (Auto) 9.2 % (13.4-35.0) L 06/11/20 02:36 [place] % (Auto) 5.6 % (0.0-7.3) 06/11/20 02:36 Eos % (Auto) 3.6 % (0.0-4.3) 06/11/20 02:36 Baso % (Auto) 0.6 % (0.0-1.8) 06/11/20 02:36 Lymph # (Auto) 1.0 K/mm3 (1.2-5.4) L 06/11/20 02:36 [place] # (Auto) 0.6 K/mm3 (0.0-0.8) 06/11/20 02:36 Eos # (Auto) 0.4 K/mm3 (0.0-0.4) 06/11/20 02:36 Baso # (Auto) 0.1 K/mm3 (0.0-0.1) 06/11/20 02:36 Seg Neutrophils % 81.0 % (40.0-70.0) H 06/11/20 02:36 Seg Neutrophils # 9.1 K/mm3 (1.8-7.7) H 06/11/20 02:36 Sodium 137 mmol/L (137-145) 06/11/20 02:36 Potassium 3.7 mmol/L (3.6-5.0) 06/11/20 02:36 Chloride 100.2 mmol/L (98-107) 06/11/20 02:36 Carbon Dioxide 26 mmol/L (22-30) 06/11/20 02:36 Anion Gap 15 mmol/L 06/11/20 02:36 BUN 12 mg/dL (9-20) 06/11/20 02:36 Creatinine 1.0 mg/dL (0.8-1.3) 06/11/20 02:36 Estimated GFR > 60 ml/min 06/11/20 02:36 BUN/Creatinine Ratio 12 % 06/11/20 02:36 Glucose 149 mg/dL (75-100) H 06/11/20 02:36 Calcium 9.2 mg/dL (8.4-10.2) 06/11/20 02:36 Total Bilirubin 0.20 mg/dL (0.1-1.2) 06/11/20 02:36 AST 27 units/L (5-40) 06/11/20 02:36 ALT 34 units/L (7-56) 06/11/20 02:36 Alkaline Phosphatase 93 units/L (35-129) 06/11/20 02:36 Total Protein 7.3 g/dL (6.3-8.2) 06/11/20 02:36 Albumin 4.6 g/dL (3.9-5) 06/11/20 02:36 Albumin/Globulin Ratio 1.7 % 06/11/20 02:36 Urine Color Yellow (Yellow) 06/11/20 03:51 Urine Turbidity Clear (Clear) 06/11/20 03:51 Urine pH 7.0 (5.0-7.0) 06/11/20 03:51 Ur Specific [place] 1.010 (1.003-1.030) 06/11/20 03:51 Urine Protein <15 mg/dl mg/dL (Negative) 06/11/20 03:51 Urine Glucose (UA) Neg mg/dL (Negative) 06/11/20 03:51 Urine Ketones Neg mg/dL (Negative) 06/11/20 03:51 Urine Blood Neg (Negative) 06/11/20 03:51 Urine Nitrite Neg (Negative) 06/11/20 03:51 Urine Bilirubin Neg (Negative) 06/11/20 03:51 Urine Urobilinogen < 2.0 mg/dL (<2.0) 06/11/20 03:51 Ur Leukocyte Esterase Neg (Negative) 06/11/20 03:51 Urine WBC (Auto) < 1.0 /HPF (0.0-6.0) 06/11/20 03:51 Urine RBC (Auto) 0.0 /HPF (0.0-6.0) 06/11/20 03:51 Urine Mucus Few /HPF 06/11/20 03:51 Active Medications - Current Medications Current Medications: Generic Name Dose Route Start Last Admin Trade Name Freq PRN Reason Stop Dose Admin Acetaminophen 650 mg 06/11/20 04:42 Acetaminophen 325 Mg Tab PO Q4H PRN Pain MILD(1-3)/Fever >100.5/MENDES Enoxaparin Sodium 40 mg 06/11/20 22:00 Enoxaparin 40 Mg/0.4 Ml Inj SUB-Q QDAY@2200 [facility] Protocol Sodium Chloride 1,000 mls @ 75 mls/hr 06/11/20 04:45 Nacl 0.9% 1000 Ml IV DIRECT KATHY Levetiracetam 2,000 mg/ 120 mls @ 400 mls/hr 06/11/20 10:00 Dextrose IV Q12HR [facility] Lorazepam 2 mg 06/11/20 05:44 Lorazepam 2 Mg/Ml Vial IV Q4H PRN Seizures Magnesium Hydroxide 30 ml 06/11/20 04:42 Magnesium Hydroxide (Mom) Oral Liqd Udc PO Q4H PRN Constipation Morphine Sulfate 2 mg 06/11/20 04:42 Morphine 2 Mg/1 Ml Inj IV Q4H PRN Pain, Moderate (4-6) Ondansetron HCl 4 mg 06/11/20 04:42 Ondansetron 4 Mg/2 Ml Inj IV Q8H PRN Nausea And Vomiting Sodium Chloride 10 ml 06/11/20 10:00 Sodium Chloride 0.9% 10 Ml Flush Syringe IV BID [facility] Sodium Chloride 10 ml 06/11/20 04:42 Sodium Chloride 0.9% 10 Ml Flush Syringe IV PRN PRN LINE FLUSH
[2020-06-11] MEDS: levETIRAcetam 2,000 MG in DEXTROSE 5% IN WATER 100 ML IV SCH ×2 (09:12→21:45)
[2020-06-11] MEDS: ENOXAPARIN 40 MG/0.4 ML INJ SUB-Q SCH (21:45)
[2020-06-12 06:27] LABS: Basophils # (Auto) 0.1 K/mm3 (0.0-0.1); Basophils % (Auto) 0.8 % (0.0-1.8); Eosinophils # (Auto) 0.7 K/mm3 (0.0-0.4); Eosinophils % (Auto) 8.2 % (0.0-4.3); Hematocrit 43.8 % (35.5-45.6); Hemoglobin 14.9 gm/dl (11.8-15.2); Lymphocytes # (Auto) 2.3 K/mm3 (1.2-5.4); Lymphocytes % (Auto) 27.2 % (13.4-35.0); Mean Corpuscular HGB Conc 34 % (32-34); Mean Corpuscular Volume 95 fl (84-94); Monocytes % (Auto) 11.8 % (0.0-7.3); Platelet Count 210 K/mm3 (140-440); Red Blood Count 4.63 M/mm3 (3.65-5.03); Red Cell Distribution Width 11.8 % (13.2-15.2)
[2020-06-12 06:33] LABS: INR 0.98 (0.87-1.13)
[2020-06-12 06:43] LABS: BUN/Creatinine Ratio 14; Blood Urea Nitrogen 13 mg/dL (9-20); Calcium 9.5 mg/dL (8.4-10.2); Hemolysis Index 8
--- NOTE | 2020-06-12 08:07 | Progress Note ---
Assessment and Plan Assessment and plan: 34-year-old male with known history of multiple sclerosis, seizure disorder, depression and paranoia brought into the emergency room by EMS after having multiple seizures Seizure disorder. S/p status epilepticus Multiple sclerosis DVT prophylaxis 06/11/2020. Neurology consultation pending. Follow-up EEG. Continue Keppra. Seizure precautions. CT head unremarkable. Consider MRI 06/12/2020. EEG ordered. Neurology consultation pending. No new seizure activity. Continue Keppra. History Interval history: No new issues overnight. Hospitalist Physical - Constitutional Vitals: Temp Pulse Resp BP Pulse Ox 98.6 F 78 16 115/67 94 06/12/20 05:24 06/12/20 05:24 06/12/20 05:24 06/12/20 05:24 06/12/20 05:24 General appearance: Present: no acute distress, well-nourished - EENT Eyes: Present: PERRL, EOM intact ENT: hearing intact, clear oral mucosa, dentition normal - Neck Neck: Present: supple, normal ROM - Respiratory Respiratory effort: normal Respiratory: bilateral: CTA - Cardiovascular Rhythm: regular Heart Sounds: Present: S1 & S2. Absent: gallop, rub - Extremities Extremities: no ischemia, No edema, Full ROM - Abdominal General gastrointestinal: soft, non-tender, non-distended, normal bowel sounds - Integumentary Integumentary: Present: clear, warm, dry - Neurologic Neurologic: CNII-XII intact, moves all extremities Results - Labs CBC & Chem 7: 06/12/20 05:50 06/12/20 05:50 Labs: Laboratory Last Values WBC 8.4 K/mm3 (4.5-11.0) 06/12/20 05:50 RBC 4.63 M/mm3 (3.65-5.03) 06/12/20 05:50 Hgb 14.9 gm/dl (11.8-15.2) 06/12/20 05:50 Hct 43.8 % (35.5-45.6) 06/12/20 05:50 MCV 95 fl (84-94) H 06/12/20 05:50 MCH 32 pg (28-32) 06/12/20 05:50 MCHC 34 % (32-34) 06/12/20 05:50 RDW 11.8 % (13.2-15.2) L 06/12/20 05:50 Plt Count 210 K/mm3 (140-440) 06/12/20 05:50 Lymph % (Auto) 27.2 % (13.4-35.0) 06/12/20 05:50 [place] % (Auto) 11.8 % (0.0-7.3) H 06/12/20 05:50 Eos % (Auto) 8.2 % (0.0-4.3) H 06/12/20 05:50 Baso % (Auto) 0.8 % (0.0-1.8) 06/12/20 05:50 Lymph # (Auto) 2.3 K/mm3 (1.2-5.4) 06/12/20 05:50 [place] # (Auto) 1.0 K/mm3 (0.0-0.8) H 06/12/20 05:50 Eos # (Auto) 0.7 K/mm3 (0.0-0.4) H 06/12/20 05:50 Baso # (Auto) 0.1 K/mm3 (0.0-0.1) 06/12/20 05:50 Seg Neutrophils % 52.0 % (40.0-70.0) 06/12/20 05:50 Seg Neutrophils # 4.4 K/mm3 (1.8-7.7) 06/12/20 05:50 PT 12.8 Sec. (12.2-14.9) 06/12/20 05:50 INR 0.98 (0.87-1.13) 06/12/20 05:50 Sodium 141 mmol/L (137-145) 06/12/20 05:50 Potassium 4.1 mmol/L (3.6-5.0) 06/12/20 05:50 Chloride 101.8 mmol/L (98-107) 06/12/20 05:50 Carbon Dioxide 30 mmol/L (22-30) 06/12/20 05:50 Anion Gap 13 mmol/L 06/12/20 05:50 BUN 13 mg/dL (9-20) 06/12/20 05:50 Creatinine 0.9 mg/dL (0.8-1.3) 06/12/20 05:50 Estimated GFR > 60 ml/min 06/12/20 05:50 BUN/Creatinine Ratio 14 % 06/12/20 05:50 Glucose 92 mg/dL (75-100) 06/12/20 05:50 Calcium 9.5 mg/dL (8.4-10.2) 06/12/20 05:50 Total Bilirubin 0.20 mg/dL (0.1-1.2) 06/11/20 02:36 AST 27 units/L (5-40) 06/11/20 02:36 ALT 34 units/L (7-56) 06/11/20 02:36 Alkaline Phosphatase 93 units/L (35-129) 06/11/20 02:36 Total Protein 7.3 g/dL (6.3-8.2) 06/11/20 02:36 Albumin 4.6 g/dL (3.9-5) 06/11/20 02:36 Albumin/Globulin Ratio 1.7 % 06/11/20 02:36 Urine Color Yellow (Yellow) 06/11/20 03:51 Urine Turbidity Clear (Clear) 06/11/20 03:51 Urine pH 7.0 (5.0-7.0) 06/11/20 03:51 Ur Specific [place] 1.010 (1.003-1.030) 06/11/20 03:51 Urine Protein <15 mg/dl mg/dL (Negative) 06/11/20 03:51 Urine Glucose (UA) Neg mg/dL (Negative) 06/11/20 03:51 Urine Ketones Neg mg/dL (Negative) 06/11/20 03:51 Urine Blood Neg (Negative) 06/11/20 03:51 Urine Nitrite Neg (Negative) 06/11/20 03:51 Urine Bilirubin Neg (Negative) 06/11/20 03:51 Urine Urobilinogen < 2.0 mg/dL (<2.0) 06/11/20 03:51 Ur Leukocyte Esterase Neg (Negative) 06/11/20 03:51 Urine WBC (Auto) < 1.0 /HPF (0.0-6.0) 06/11/20 03:51 Urine RBC (Auto) 0.0 /HPF (0.0-6.0) 06/11/20 03:51 Urine Mucus Few /HPF 06/11/20 03:51 [place]/IV: Voiding Method Toilet Active Medications - Current Medications Current Medications: Generic Name Dose Route Start Last Admin Trade Name Freq PRN Reason Stop Dose Admin Acetaminophen 650 mg 06/11/20 04:42 Acetaminophen 325 Mg Tab PO Q4H PRN Pain MILD(1-3)/Fever >100.5/MENDES Enoxaparin Sodium 40 mg 06/11/20 22:00 06/11/20 21:45 Enoxaparin 40 Mg/0.4 Ml Inj SUB-Q 40 mg QDAY@2200 KATHY Administration Protocol Sodium Chloride 1,000 mls @ 75 mls/hr 06/11/20 04:45 Nacl 0.9% 1000 Ml IV DIRECT KATHY Levetiracetam 2,000 mg/ 120 mls @ 400 mls/hr 06/11/20 10:00 06/11/20 21:45 Dextrose IV 400 mls/hr Q12HR KATHY Administration Lorazepam 2 mg 06/11/20 05:44 Lorazepam 2 Mg/Ml Vial IV Q4H PRN Seizures Magnesium Hydroxide 30 ml 06/11/20 04:42 Magnesium Hydroxide (Mom) Oral Liqd Udc PO Q4H PRN Constipation Morphine Sulfate 2 mg 06/11/20 04:42 Morphine 2 Mg/1 Ml Inj IV Q4H PRN Pain, Moderate (4-6) Ondansetron HCl 4 mg 06/11/20 04:42 Ondansetron 4 Mg/2 Ml Inj IV Q8H PRN Nausea And Vomiting Sodium Chloride 10 ml 06/11/20 10:00 06/11/20 21:45 Sodium Chloride 0.9% 10 Ml Flush Syringe IV 10 ml BID KATHY Administration Sodium Chloride 10 ml 06/11/20 04:42 Sodium Chloride 0.9% 10 Ml Flush Syringe IV PRN PRN LINE FLUSH
[2020-06-12] MEDS: levETIRAcetam 2,000 MG in DEXTROSE 5% IN WATER 100 ML IV SCH ×2 (09:17→21:53)
--- NOTE | 2020-06-12 15:17 | Consultation ---
History of Present Illness Consult date: 06/12/20 Reason for Consult: Seizures Chief complaint: "Seizure" History of present illness: 34 yo male with epilepsy, MS, cognitive impairment, ?stroke, who presents with noted 5 seizure events with a total of Ativan 4 mg given. Patient is on Keppra 2 grams po bid. He deneis recent fever, chills, cough, chest pain/pressure, or dysuria. Patient is not able to provide any more history. Past History Past Medical History: seizures, stroke (With left sided weakness), other (Multiple sclerosis,Depression,) Past Surgical History: No surgical history Social history: no significant social history Family history: no significant family history Medications and Allergies Allergies Allergy/AdvReac Type Severity Reaction Status Date / Time aspirin Allergy Unknown Verified 04/12/19 23:06 ibuprofen Allergy Unknown Verified 04/12/19 23:06 wheat Allergy Unknown Verified 04/12/19 23:07 Home Medications Medication Instructions Recorded Confirmed Last Taken Type levETIRAcetam [Keppra TAB] 2,000 mg PO BID #60 tab 04/14/19 06/11/20 Unknown Rx Active Meds: Active Medications Acetaminophen (Acetaminophen 325 Mg Tab) 650 mg PO Q4H PRN PRN Reason: Pain MILD(1-3)/Fever >100.5/MENDES Enoxaparin Sodium (Enoxaparin 40 Mg/0.4 Ml Inj) 40 mg SUB-Q QDAY@2200 KATHY; Protocol Last Admin: 06/11/20 21:45 Dose: 40 mg Documented by: Sodium Chloride (Nacl 0.9% 1000 Ml) 1,000 mls @ 75 mls/hr IV DIRECT KATHY Levetiracetam 2,000 mg/ (Dextrose) 120 mls @ 400 mls/hr IV Q12HR KATHY Last Admin: 06/12/20 09:17 Dose: 400 mls/hr Documented by: Lorazepam (Lorazepam 2 Mg/Ml Vial) 2 mg IV Q4H PRN PRN Reason: Seizures Magnesium Hydroxide (Magnesium Hydroxide (Mom) Oral Liqd Udc) 30 ml PO Q4H PRN PRN Reason: Constipation Morphine Sulfate (Morphine 2 Mg/1 Ml Inj) 2 mg IV Q4H PRN PRN Reason: Pain, Moderate (4-6) Ondansetron HCl (Ondansetron 4 Mg/2 Ml Inj) 4 mg IV Q8H PRN PRN Reason: Nausea And Vomiting Sodium Chloride (Sodium Chloride 0.9% 10 Ml Flush Syringe) 10 ml IV BID KATHY Last Admin: 06/12/20 09:17 Dose: 10 ml Documented by: Sodium Chloride (Sodium Chloride 0.9% 10 Ml Flush Syringe) 10 ml IV PRN PRN PRN Reason: LINE FLUSH Review of Systems All systems: negative Physical Examination - Vital Signs Vital Signs: Vital Signs Pulse Resp Pulse Ox 111 H 23 91 06/11/20 01:48 06/11/20 01:48 06/11/20 01:48 - Physical Exam Narrative exam: Gen: nad, well-nourished; Head: normocephalic; +head tremor; Eyes: no gaze deviation; no ptosis; ENT: normal vocalization; CVS: warm and well-perfused; Pulm: no respiratory distress; GI: appears non-distended; Ext: no cyanosis at distal extremities; Skin: no acute rash at distal extremities; Heme: no pathologic bruising or ecchymosis at distal extremities; Neuro: alert, oriented to name, june, not age, not year, not surroundings, not state, no dysarthria, ?dysphasia, CN 2 - PERRL, visual alcaraz grossly intact, CN 3, 4, 6 - EOMI, CN 5 - facial sensation symmetric to light touch, CN 7 - facial movement symmetric, CN 8 - hearing grossly intact, CN 9, 10 - uvula midline, CN 11 - shrug symmetric, CN 12 - tongue midline; Motor - at least 4+/5 at distal exts; Sensory - light touch symmetric, Cerebellar - fnf /hts intact except w/ L FNF (+ataxia w/ kinetic/positional tremor), Gait - deferred secondary to seizure risk; Results - Laboratory Findings CBC and BMP: 06/12/20 05:50 06/12/20 05:50 Abnormal Lab Findings: Abnormal Labs 06/11/20 06/11/20 06/12/20 02:36 02:36 05:50 WBC 11.2 H MCV 95 H MCH 33 H MCHC 35 H RDW 11.9 L 11.8 L Lymph % (Auto) 9.2 L Jack % (Auto) 11.8 H Eos % (Auto) 8.2 H Lymph # (Auto) 1.0 L Jack # (Auto) 1.0 H Eos # (Auto) 0.7 H Seg Neutrophils % 81.0 H Seg Neutrophils # 9.1 H Glucose 149 H Assessment and Plan 34 yo male with epilepsy, MS, ?stroke who presents with 5 seizures, requiring 4 mg of Ativan. 1. Epilepsy - continue Keppra 2 grams bid; recommend topamax 25 mg bid x 7 days and then 50 mg bid until seen by neurologist; ordered MRI Brain w/ wo contrast (if no contraindications); EEG pending. 2. MS - MRI Brain w/ wo contrast ordered to note if a cortical/subcortical lesion is the etiology of the seizures. 3. Cognitive Impairment - ordered preablumin, b12, tsh, thiamine, 25-OH vitamin d. Nabeel Martinez MD Neurology
[2020-06-12] MEDS: ENOXAPARIN 40 MG/0.4 ML INJ SUB-Q SCH (21:54)
[2020-06-12] MEDS: TOPIRAMATE TAB 25 MG TAB PO SCH (23:20)
[2020-06-13] MEDS: SODIUM CHLORIDE 0.9% 1000 ML 1,000 ML IV SCH (06:46)
--- NOTE | 2020-06-13 08:12 | Progress Note ---
Assessment and Plan Assessment and plan: 34-year-old male with known history of multiple sclerosis, seizure disorder, depression and paranoia brought into the emergency room by EMS after having multiple seizures Seizure disorder. S/p status epilepticus Multiple sclerosis DVT prophylaxis 06/11/2020. Neurology consultation pending. Follow-up EEG. Continue Keppra. Seizure precautions. CT head unremarkable. Consider MRI 06/12/2020. EEG ordered. Neurology consultation pending. No new seizure activity. Continue Keppra. 06/13/2020; neurology consulted and recommend to do MRI and EEG. No seizure activity. Recommend to continue Keppra and as needed Ativan. Patient started on topiramate. Possible discharge after we get MRI, EEG result. History Interval history: Patient was seen and evaluated this morning. Patient does not have any seizures overnight No nursing issues overnight Hospitalist Physical - Physical exam Narrative exam: Not in cardiopulmonary distress. The patient appeared well nourished and normally developed. Vital signs as documented. Head exam is unremarkable. No scleral icterus . Neck is without jugular venous distension, thyromegaly, or carotid bruits. Lungs are clear to auscultation. Cardiac exam reveals regular rate and Rhythm. Abdominal exam reveals normal bowel sounds, nontender, no organomegaly. Extremities are nonedematous and both femoral and pedal pulses are normal. REST ROOM MATRON: Alert and oriented 3. No focal weakness. - Constitutional Vitals: Temp Pulse Resp BP Pulse Ox 98.2 F 81 18 126/80 95 06/13/20 06:40 06/13/20 06:40 06/13/20 06:40 06/13/20 06:40 06/13/20 06:40 General appearance: Present: no acute distress, well-nourished Results - Labs CBC & Chem 7: 06/12/20 05:50 06/12/20 05:50 Labs: Laboratory Last Values WBC 8.4 K/mm3 (4.5-11.0) 06/12/20 05:50 RBC 4.63 M/mm3 (3.65-5.03) 06/12/20 05:50 Hgb 14.9 gm/dl (11.8-15.2) 06/12/20 05:50 Hct 43.8 % (35.5-45.6) 06/12/20 05:50 MCV 95 fl (84-94) H 06/12/20 05:50 MCH 32 pg (28-32) 06/12/20 05:50 MCHC 34 % (32-34) 06/12/20 05:50 RDW 11.8 % (13.2-15.2) L 06/12/20 05:50 Plt Count 210 K/mm3 (140-440) 06/12/20 05:50 Lymph % (Auto) 27.2 % (13.4-35.0) 06/12/20 05:50 Citrus % (Auto) 11.8 % (0.0-7.3) H 06/12/20 05:50 Eos % (Auto) 8.2 % (0.0-4.3) H 06/12/20 05:50 Baso % (Auto) 0.8 % (0.0-1.8) 06/12/20 05:50 Lymph # (Auto) 2.3 K/mm3 (1.2-5.4) 06/12/20 05:50 [place]rus # (Auto) 1.0 K/mm3 (0.0-0.8) H 06/12/20 05:50 Eos # (Auto) 0.7 K/mm3 (0.0-0.4) H 06/12/20 05:50 Baso # (Auto) 0.1 K/mm3 (0.0-0.1) 06/12/20 05:50 Seg Neutrophils % 52.0 % (40.0-70.0) 06/12/20 05:50 Seg Neutrophils # 4.4 K/mm3 (1.8-7.7) 06/12/20 05:50 PT 12.8 Sec. (12.2-14.9) 06/12/20 05:50 INR 0.98 (0.87-1.13) 06/12/20 05:50 Sodium 141 mmol/L (137-145) 06/12/20 05:50 Potassium 4.1 mmol/L (3.6-5.0) 06/12/20 05:50 Chloride 101.8 mmol/L (98-107) 06/12/20 05:50 Carbon Dioxide 30 mmol/L (22-30) 06/12/20 05:50 Anion Gap 13 mmol/L 06/12/20 05:50 BUN 13 mg/dL (9-20) 06/12/20 05:50 Creatinine 0.9 mg/dL (0.8-1.3) 06/12/20 05:50 Estimated GFR > 60 ml/min 06/12/20 05:50 BUN/Creatinine Ratio 14 % 06/12/20 05:50 Glucose 92 mg/dL (75-100) 06/12/20 05:50 Calcium 9.5 mg/dL (8.4-10.2) 06/12/20 05:50 Total Bilirubin 0.20 mg/dL (0.1-1.2) 06/11/20 02:36 AST 27 units/L (5-40) 06/11/20 02:36 ALT 34 units/L (7-56) 06/11/20 02:36 Alkaline Phosphatase 93 units/L (35-129) 06/11/20 02:36 Total Protein 7.3 g/dL (6.3-8.2) 06/11/20 02:36 Albumin 4.6 g/dL (3.9-5) 06/11/20 02:36 Albumin/Globulin Ratio 1.7 % 06/11/20 02:36 Prealbumin 0.236 g/L (0.200-0.400) 06/12/20 15:40 Vitamin B12 720.5 pg/mL (211-911) 06/12/20 15:40 Folate 17.29 ng/mL (7.3-26.0) 06/12/20 15:40 TSH 0.846 mlU/mL (0.270-4.200) 06/12/20 15:40 Urine Color Yellow (Yellow) 06/11/20 03:51 Urine Turbidity Clear (Clear) 06/11/20 03:51 Urine pH 7.0 (5.0-7.0) 06/11/20 03:51 Ur Specific [place] 1.010 (1.003-1.030) 06/11/20 03:51 Urine Protein <15 mg/dl mg/dL (Negative) 06/11/20 03:51 Urine Glucose (UA) Neg mg/dL (Negative) 06/11/20 03:51 Urine Ketones Neg mg/dL (Negative) 06/11/20 03:51 Urine Blood Neg (Negative) 06/11/20 03:51 Urine Nitrite Neg (Negative) 06/11/20 03:51 Urine Bilirubin Neg (Negative) 06/11/20 03:51 Urine Urobilinogen < 2.0 mg/dL (<2.0) 06/11/20 03:51 Ur Leukocyte Esterase Neg (Negative) 06/11/20 03:51 Urine WBC (Auto) < 1.0 /HPF (0.0-6.0) 06/11/20 03:51 Urine RBC (Auto) 0.0 /HPF (0.0-6.0) 06/11/20 03:51 Urine Mucus Few /HPF 06/11/20 03:51 [place]/IV: Voiding Method Urinal Active Medications - Current Medications Current Medications: Generic Name Dose Route Start Last Admin Trade Name Freq PRN Reason Stop Dose Admin Acetaminophen 650 mg 06/11/20 04:42 Acetaminophen 325 Mg Tab PO Q4H PRN Pain MILD(1-3)/Fever >100.5/MENDES Enoxaparin Sodium 40 mg 06/11/20 22:00 06/12/20 21:54 Enoxaparin 40 Mg/0.4 Ml Inj SUB-Q 40 mg QDAY@2200 KATHY Administration Protocol Sodium Chloride 1,000 mls @ 75 mls/hr 06/11/20 04:45 06/13/20 06:46 Nacl 0.9% 1000 Ml IV 75 mls/hr DIRECT KATHY Administration Levetiracetam 2,000 mg/ 120 mls @ 400 mls/hr 06/11/20 10:00 06/12/20 21:53 Dextrose IV 400 mls/hr Q12HR KATHY Administration Lorazepam 2 mg 06/11/20 05:44 Lorazepam 2 Mg/Ml Vial IV Q4H PRN Seizures Magnesium Hydroxide 30 ml 06/11/20 04:42 Magnesium Hydroxide (Mom) Oral Liqd Udc PO Q4H PRN Constipation Morphine Sulfate 2 mg 06/11/20 04:42 Morphine 2 Mg/1 Ml Inj IV Q4H PRN Pain, Moderate (4-6) Ondansetron HCl 4 mg 06/11/20 04:42 Ondansetron 4 Mg/2 Ml Inj IV Q8H PRN Nausea And Vomiting Sodium Chloride 10 ml 06/11/20 10:00 06/12/20 21:54 Sodium Chloride 0.9% 10 Ml Flush Syringe IV 10 ml BID KATHY Administration Sodium Chloride 10 ml 06/11/20 04:42 Sodium Chloride 0.9% 10 Ml Flush Syringe IV PRN PRN LINE FLUSH Topiramate 25 mg 06/12/20 23:45 06/12/20 23:20 Topiramate Tab 25 Mg Tab PO 06/19/20 23:44 25 mg Q12HR KATHY Administration Topiramate 50 mg 06/19/20 22:00 Topiramate Tab 25 Mg Tab PO Q12HR KATHY
[2020-06-13] MEDS: levETIRAcetam 2,000 MG in DEXTROSE 5% IN WATER 100 ML IV SCH (09:41)
[2020-06-13] MEDS: TOPIRAMATE TAB 25 MG TAB PO SCH ×2 (09:41→21:14)
--- NOTE | 2020-06-13 13:33 | Magnetic Resonance Report ---
MRI BRAIN 06/13/2020 INDICATION / CLINICAL INFORMATION: MS or CVA or neoplasm. TECHNIQUE: Multiplanar, multisequence MR images of the brain were obtained. COMPARISON: 04/14/2019 FINDINGS: BRAIN / INTRACRANIAL CONTENTS: Unenhanced and enhanced MR images of the brain were obtained and ady red to the prior exam from 04/14/2019. There is no evidence of acute abnormality. Ventricles and sulci are prominent in size for a patient of this age, consistent with pronounced diff use cerebral atrophy. Extensive diffuse and focal chronic T2 weighted hyper intensity is present thro ughout the cerebral hemispheric white matter and brainstem, as well as the middle cerebellar peduncle s and cerebellar white matter. There is no evidence of acute ischemic injury, hemorrhage, or mass. There are no abnormal extra-axial fluid collections. Postcontrast images demonstrate no abnormal contrast enhancement. EXTRACRANIAL: Unremarkable CRANIOCERVICAL JUNCTION: No significant abnormality. VASCULAR FLOW-VOIDS: No significant abnormality. IMPRESSION: Prominent diffuse cerebral atrophy and extensive chronic white matter signal change, stable when com pared to 04/14/2019. No acute or superimposed abnormality. Signer Name: Scot Piper MD Signed: 06/13/2020 1:28 PM Workstation Name: [id number]
[2020-06-13] MEDS: levETIRAcetam 500 MG TAB PO SCH (21:13)
[2020-06-13] MEDS: ENOXAPARIN 40 MG/0.4 ML INJ SUB-Q SCH (21:14)
[2020-06-14] MEDS: SODIUM CHLORIDE 0.9% 1000 ML 1,000 ML IV SCH (00:08)
--- NOTE | 2020-06-14 07:43 | Discharge Summary ---
Providers - Providers Date of Admission: 06/12/20 08:30 Date of discharge: 06/14/20 Attending physician: ESTHER KINCAID MD 06/11/20 04:42 Consult to Physician [CONS] Routine Comment: Consulting Provider: MARIBETH RHODES Physician Instructions: Reason For Exam: Status epilepticus Primary care physician: PRODUCTION [employer]OOF[employer]ER Hospitalization Reason for admission: Status epilepticus Condition: Stable Pertinent studies: CT/MRI head EEG Hospital course: History of present illness: 34-year-old male with known history of multiple sclerosis, seizure disorder, depression and paranoia brought into the emergency room by EMS after having multiple seizures today. He has had about 5 seizures prior to reporting to the emergency room. Patient has also had about 4 mg of lorazepam prior to arrival. Most of the history was gotten from the ER staff as patient is nonverbal. Patient had a similar episode sometime in April 2019. He takes Keppra 2000 mg twice a day. Follows up with Dr. Matute who is his neurologist. Mother is the caregiver. Work-up in the emergency room today has been unremarkable. Patient is currently postictal. Hospital course Seizure disorder. S/p status epilepticus Multiple sclerosis DVT prophylaxis 06/11/2020. Neurology consultation pending. Follow-up EEG. Continue Keppra. Seizure precautions. CT head unremarkable. Consider MRI 06/12/2020. EEG ordered. Neurology consultation pending. No new seizure activity. Continue Keppra. 06/13/2020; neurology consulted and recommend to do MRI and EEG. No seizure activity. Recommend to continue Keppra and as needed Ativan. Patient started on topiramate. Possible discharge after we get MRI, EEG result. EEG was done and showed generalized slowing but no epileptiform discharge. MRI was done and negative. Discussed with neurology Dr. Rhodes and he recommend discharge the patient with Keppra 2 g p.o. twice daily, and add topiramate 25 mg p.o. twice daily for the next 5 days and increase to 50 mg twice daily if he tolerated it. Patient said he had a neurologist and he will follow with him. Patient was hemodynamically stable at the time of discharge. Disposition: DC-30 STILL A PATIENT Time spent for discharge: 34 minutes - Discharge Diagnoses (1) Multiple sclerosis Status: Acute (2) Status epilepticus Status: Acute (3) Post-ictal state Status: Acute (4) Seizure Status: Acute Core Measure Documentation - Palliative Care Palliative Care/ Comfort Measures: Not Applicable - Core Measures Any of the following diagnoses?: none Exam - Physical Exam Narrative exam: Not in cardiopulmonary distress. The patient appeared well nourished and normally developed. Vital signs as documented. Head exam is unremarkable. No scleral icterus . Neck is without jugular venous distension, thyromegaly, or carotid bruits. Lungs are clear to auscultation. Cardiac exam reveals regular rate and Rhythm. Abdominal exam reveals normal bowel sounds, nontender, no organomegaly. Extremities are nonedematous and both femoral and pedal pulses are normal. SIPHONER: Alert and oriented 3. No focal weakness. - Constitutional Vitals: Temp Pulse Resp BP Pulse Ox 98.4 F 67 16 128/80 97 06/14/20 04:34 06/14/20 04:34 06/14/20 04:34 06/14/20 04:34 06/14/20 04:34 Plan Activity: no restrictions Weight Bearing Status: Full Weight Bearing Diet: regular Follow up with: PRIMARY CARE, [Primary Care Provider] - 7 Days Prescriptions: Topiramate [Topamax] 25 mg PO Q12HR #10 tablet Topiramate [Topamax] 50 mg PO Q12HR #120 tablet
[2020-06-14] MEDS: TOPIRAMATE TAB 25 MG TAB PO SCH (10:10)
[2020-06-14] MEDS: levETIRAcetam 500 MG TAB PO SCH (10:10)
[2020-06-14 12:40] VITALS: BP 137/90
[2020-06-19] MEDS ORDERED: TOPIRAMATE TAB 25 MG TAB PO SCH (22:00)
== END 2020-06-14 15:07 | disposition home or self-care (01) | DRG 101 ==
LOC: ED 01:38 → 3A 04:01 → OBSVTOIN 06-12 08:30
PROVIDERS: ADMIT Internal Medicine Geriatric Medicine; ATTEND Internal Medicine
DX: G40.901 Epilepsy, unspecified, not intractable, with status epilepticus (principal); G35 Multiple sclerosis; Z86.73 Personal history of transient ischemic attack (TIA), and cerebral infarction without residual deficits; F32.9 Major depressive disorder, single episode, unspecified; Z88.6 Allergy status to analgesic agent; Z88.8 Allergy status to other drugs, medicaments and biological substances; Z91.018 Allergy to other foods
CPT/HCPCS: 36415; 70450; 70553; 80048; 80053; 81001; 82306; 82607; 82747; 84134; 84207; 84425; 84443; 85025; 85610; 95816; 96365; 96375; 99406; G0378; A9575; C9113; J1650; J1953; J2405; J7030